=== PATIENT | male | born 1970 | race Caucasian/White ===

== ENCOUNTER → 2017-02-13 | Outpatient (CLI) | payer BC ==
[~2017-02-13] MED LIST: CHEWABLE ASPIRI81 MG PO; CLOPIDOGREL75 M2 PO; CRESTOR40 MG PO; KEFLEX 500MG.500 MG PO; LEVAQUIN500 MG PO; METOPROLOL 25 M25 MG; NAPROXEN SODIU500 MG PO; PLAVIX75 M1; SEPTRA DS 800 M1 TAB PO; VITAMIN D31000 IU PO
--- NOTE | 2017-02-14 20:05 | RADIOLOGY REPORT PS360 ---
. US PHYSIOLOGICAL EXAM W/STRESS HISTORY: CLAUDICATIO hypertension. Smoker. Hyperlipidemia. Previous CA. Rest pain both legs. Claudication both legs. CAD. Rest pain. TECHNIQUE: Segmental pressures obtained of both right and left leg. These are compared to brachial blood pressure to yield index at each level sampled including summary THERESA. The data sheets from the procedure are available in PACS LOWER ARTERIAL REST STUDY this initial Rest study followed by stress study. No prior studies available for comparison. Blood pressures reported are in millimeters mercury. RIGHT LEG THERESA = 1.1. Brachial BP: 148 Thigh BP: BP 140 index 0.92 Calf BP: BP 134 with index 0.88 Ankle PT: BP 161 20-1 0.06 Ankle DP : BP 157 with index 1.03 Digit =BP 118 with index 0.78 LEFT LEG THERESA = 1.1 Brachial BPD: BP 152 Thigh BP: BP 138 with index 0.91 Calf BP: BP 140 with index 0.92 Ankle PT:BP 151 with index 1.06 Ankle DP: BP 142 with index 0.93 Digit = 113 oh thin axial 0.74 Pulses and waveforms: Normal bilateral with rest LOWER ARTERIAL STRESS STUDY TECHNIQUE: patient stressed at 10% grade. 2 mph for 5 minutes. Immediate post stress:. Right THERESA 1.0 , BP with down very slightly/ incrementally Left THERESA 1.1. BP actually increased slightly. Brachial increased increased as well immediate post stress. 1 minute Patient complained thigh pain 3 pain scale 5 minute reported calf pain with pain level 3 on pain scale ......... IMPRESSION: . 1. Normal Rest ABIs: Right THERESA 1.1 & Left THERESA 1.1 Normal pulses and waveforms bilaterally 2. Patient stressed 5 minutes = negative findings. No Significant flow-limiting stenosis evidentl: Immediate Post Stress: Right THERESA = 1.0 & LEFT THERESA = 1.1
== END ==
LOC: RT 08:38
DX: I73.9 Peripheral vascular disease, unspecified (principal)